=== PATIENT | male | born 1960 | race Caucasian/White ===

== ENCOUNTER 2019-12-09 09:26 | Emergency (ER) | payer BC ==
[~2019-12-09] VITALS: Ht 177.8 cm; Wt 151.4 kg
[2019-12-09 09:45] VITALS: BP 188/76; TEMP 98.2
[2019-12-09 11:05] VITALS: PULSE 84
== END 2019-12-09 11:05 | disposition home or self-care (01) ==
LOC: COL.ER 09:26
DX: K59.00 Constipation, unspecified (principal); I10 Essential (primary) hypertension; F17.290 Nicotine dependence, other tobacco product, uncomplicated; Z88.8 Allergy status to other drugs, medicaments and biological substances

== ENCOUNTER 2019-12-24 01:40 | Emergency (ER) | payer BC ==
[~2019-12-24] VITALS: Ht 177.8 cm; Wt 154.5 kg
[2019-12-24 01:45] VITALS: TEMP 97.7
[2019-12-24 02:18] LABS: BASO # 0.1 (0.0-0.2); BASO % 0.7 % (0.0-2.0); EOS # 0.6 (0.0-0.7); EOS % 7.2 % (0-4.0); GRAN # 5.2 (1.4-6.5); GRAN % 64.2 % (42.2-75.2); HEMATOCRIT 37.4 % (42.0-52.0); HEMOGLOBIN 12.2 g/dl (13.5-18.0); LYMPH # 1.6 (1.2-3.4); LYMPH % 20.3 % (20.0-51.0); MEAN CELL VOLUME 87 fl (80.0-100.0); MEAN CORPUSCULAR HEMOGLOBIN 29 pg (27.0-31.0); MEAN CORPUSCULAR HGB CONC 33 g/dl (33.0-37.0); MEAN PLATELET VOLUME 8.9 fl (7.4-10.4); MONO # 0.6 (0.1-0.6); MONO % 7.5 % (1.7-9.3); PLATELET COUNT 360 K/mm3 (130-400); RED BLOOD COUNT 4.28 M/mm3 (4.20-5.60); REDCELL DISTRIBUTION WIDTH-CV 14.2 % (11.5-14.5)
[2019-12-24 02:28] LABS: ALBUMIN 4.9 gm/dL (3.5-5.0); BILIRUBIN,TOTAL 0.5 mg/dL (0.0-1.0); CALCIUM 10.4 mg/dL (8.4-10.2); CREATININE, serum 0.79 (0.66-1.25); POTASSIUM 4.5 mmol/L (3.4-5.0); TOTAL PROTEIN 8.2 gm/dL (6.4-8.2)
[2019-12-24 02:57] LABS: COLLECTION METHOD CLEAN CATCH
[2019-12-24 03:44] LABS: PH 6 (5-8); SQUAMOUS EPITHELIAL 0-2 /hpf; URINE APPEARANCE Clear; URINE BACTERIA None Seen /hpf; URINE BILIRUBIN Negative (NEGATIVE); URINE BLOOD 1+ (NEGATIVE); URINE COLOR Straw; URINE GLUCOSE 3+ (NEGATIVE); URINE KETONE Negative (NEGATIVE); URINE LEUKOCYTE ESTERASE 1+ (NEGATIVE); URINE NITRATE Negative (NEGATIVE); URINE PROTEIN(semi-quant) Negative (NEGATIVE); URINE RBC 0-2 /hpf; URINE UROBILINOGEN Negative (NEGATIVE)
[2019-12-24 06:28] LABS: INR 0.9 (0.8-3.0); PROTHROMBIN TIME 10.6 SECONDS (9.7-12.8)
[2019-12-24] MEDS ORDERED: AMOXICILLIN 8751 TAB PO ×3 (08:09→09:03)
[2019-12-24] MEDS ORDERED: NAPROXEN 3375 MG/TAB PO ×3 (08:45→09:03)
[2019-12-24 08:57] VITALS: BP 178/92; PULSE 90
== END 2019-12-24 08:56 | disposition home or self-care (01) ==
LOC: COL.ER 01:40 → MC.RAD 06:40 → COL.ER 06:41
PROVIDERS: Emergency Medicine
DX: M54.12 Radiculopathy, cervical region (principal); H70.11 Chronic mastoiditis, right ear
CPT/HCPCS: A4216; J0696; J1885